=== PATIENT | female | born 1960 | race Caucasian/White ===

== ENCOUNTER 2016-10-03 22:17 | Emergency (ER) | payer OTHER ==
[~2016-10-03] VITALS: Ht 157.5 cm; Wt 70.5 kg
[~2016-10-03 22:17] MED LIST: ALBU8HFA IH; BUSP15 PO; DIVA250T4 PO; RISP2 PO; TIOT185 IH
[2016-10-03 22:23] VITALS: BP 143/62
== END 2016-10-03 23:31 | disposition left against medical advice (07) ==
LOC: EMS 22:18
DX: Z00.8 Encounter for other general examination (principal); Z53.21 Procedure and treatment not carried out due to patient leaving prior to being seen by health care provider

== ENCOUNTER 2016-10-18 14:15 | Inpatient (IN) | payer MEDICAID, OTHER ==
[~2016-10-18] VITALS: Ht 165.1 cm; Wt 86.7 kg
[2016-10-18] MEDS ORDERED: LORazepam 2 MG/ML VIAL IM ONE (15:15)
[2016-10-18] MEDS ORDERED: HALOPERIDOL LACTATE 5 MG/ML VIAL IM ONE (15:15)
[2016-10-18] MEDS ORDERED: DiphenhydrAMINE HCL 50 MG/ML VIAL IM ONE (15:15)
[2016-10-18 15:34] LABS: BASOPHILS % (AUTO) 0.7 % (0.0-2.0); HEMATOCRIT 41.3 % (36-46); HEMOGLOBIN 13.5 g/dL (12.0-16.0); LYMPHOCYTES # (AUTO) 3.1 K/uL (1.0-4.8); LYMPHOCYTES % (AUTO) 31.3 % (22.0-44.0); MEAN CORPUSCULAR HEMOGLOBIN 28.4 pg (26.0-34.0); MEAN CORPUSCULAR HGB CONC 32.7 G/dL (31.0-37.0); MEAN CORPUSCULAR VOLUME 87 fL (80-100); MONOCYTES % (AUTO) 9.7 % (2.0-9.0); NEUTROPHILS # (AUTO) 5.3 K/uL (1.8-7.7); NEUTROPHILS % (AUTO) 54.3 % (40.0-70.0); PLATELET COUNT (AUTO) 405 K/uL (150-450); RED BLOOD CELL COUNT(AUTO) 4.76 MIL/uL (4.00-5.20); RED CELL DISTRIBUTION WIDTH 13.7 % (11.5-14.5); WHITE BLOOD COUNT (AUTO) 9.8 K/uL (4.5-11.0)
[2016-10-18 15:50] LABS: ANION GAP 7 mmol/L (8-16); CALCIUM, TOTAL 8.6 mg/dL (8.8-10.5); CARBON DIOXIDE 31 mmol/L (22-29); CHLORIDE 104 mmol/L (98-107); CREATININE 0.86 mg/dL (0.60-1.30); GLOMERULAR FILTR. RATE CALC > 60 mL/min (>60); POTASSIUM 4.1 mmol/L (3.5-5.1); SODIUM SERUM 142 mmol/L (136-145); UREA NITROGEN, BLOOD 11 mg/dL (7-18)
[2016-10-18 15:56] LABS: ALANINE AMINOTRANSFERASE 20 U/L (12-78); ALBUMIN 3.6 g/dL (3.4-5.0); ASPARTATE AMINOTRANSFERASE 17 U/L (15-37); BILIRUBIN,TOTAL 0.3 mg/dL (0.1-1.0); TOTAL PROTEIN, SERUM 7.2 g/dL (6.4-8.2)
[2016-10-18 19:11] VITALS: BP 119/70
[2016-10-18] MEDS ORDERED: PNEUMOCOCCAL VACCINE POLYVALENT 0.5 ML VIAL [PPSV23] IM ONE (19:45)
[2016-10-18] MEDS ORDERED: INFLUENZA VIRUS VACCINE QVS 2016-17 (3YR+)/PF 60 MCG/0.5 ML SYRINGE IM ONE (20:15)
[2016-10-19 08:00] VITALS: BP 101/54
[2016-10-19] MEDS: NYSTATIN 15 GM POWDER BOTTLE TP SCH ×2 (09:00→17:00)
[2016-10-19] MEDS: RisperiDONE 2 MG TABLET PO SCH ×2 (11:30→17:48)
[2016-10-19] MEDS: DIVALPROEX SODIUM 250 MG DR TABLET PO SCH ×2 (11:30→17:48)
[2016-10-19] MEDS: BusPIRone HCL 15 MG TABLET PO SCH ×2 (13:45→17:49)
[2016-10-19 18:05] VITALS: BP 100/62
[2016-10-20] MEDS: LORazepam 2 MG TABLET PO PRN (00:11)
[2016-10-20] MEDS: ZOLPIDEM TARTRATE 10 MG TABLET PO PRN (00:11)
[2016-10-20 08:00] VITALS: BP 117/69
[2016-10-20] MEDS: RisperiDONE 2 MG TABLET PO SCH ×2 (08:12→16:34)
[2016-10-20] MEDS: DIVALPROEX SODIUM 250 MG DR TABLET PO SCH ×2 (08:12→16:34)
[2016-10-20] MEDS: BusPIRone HCL 15 MG TABLET PO SCH ×3 (08:12→16:34)
[2016-10-20] MEDS: NYSTATIN 15 GM POWDER BOTTLE TP SCH ×2 (09:00→16:06)
[2016-10-20 16:11] VITALS: BP 118/83
[2016-10-21] MEDS: ZOLPIDEM TARTRATE 10 MG TABLET PO PRN (00:19)
[2016-10-21] MEDS: LORazepam 2 MG TABLET PO PRN (02:28)
[2016-10-21 04:04] VITALS: BP 112/80
[2016-10-21 08:00] VITALS: BP 123/74
[2016-10-21] MEDS: BusPIRone HCL 15 MG TABLET PO SCH ×4 (08:26→21:25)
[2016-10-21] MEDS: DIVALPROEX SODIUM 250 MG DR TABLET PO SCH ×2 (08:27→18:11)
[2016-10-21] MEDS: RisperiDONE 2 MG TABLET PO SCH (08:27)
[2016-10-21] MEDS: NYSTATIN 15 GM POWDER BOTTLE TP SCH ×2 (09:00→17:00)
[2016-10-21] MEDS ORDERED: RISP4 PO (13:37)
[2016-10-21] MEDS ORDERED: VIST50 PO (13:41)
[2016-10-21] MEDS ORDERED: GABA-533 PO (13:41)
[2016-10-21] MEDS ORDERED: PERCT PO (13:41)
[2016-10-21] MEDS ORDERED: IPRA4AER IH (13:41)
[2016-10-21 16:42] VITALS: BP 102/68
[2016-10-21] MEDS: GABAPENTIN 400 MG CAPSULE PO SCH (18:11)
[2016-10-21] MEDS: RisperiDONE 4 MG TABLET PO SCH (18:12)
[2016-10-22] MEDS: ZOLPIDEM TARTRATE 10 MG TABLET PO PRN (00:26)
[2016-10-22] MEDS: LORazepam 2 MG TABLET PO PRN ×2 (00:26→09:14)
[2016-10-22 03:43] VITALS: BP 142/74
[2016-10-22 08:30] VITALS: BP 116/70
[2016-10-22] MEDS: NYSTATIN 15 GM POWDER BOTTLE TP SCH ×2 (09:00→17:00)
[2016-10-22] MEDS: RisperiDONE 4 MG TABLET PO SCH ×2 (09:12→17:17)
[2016-10-22] MEDS: DIVALPROEX SODIUM 250 MG DR TABLET PO SCH ×2 (09:13→17:18)
[2016-10-22] MEDS: GABAPENTIN 400 MG CAPSULE PO SCH ×3 (09:13→17:17)
[2016-10-22] MEDS: BusPIRone HCL 15 MG TABLET PO SCH ×4 (09:13→20:27)
[2016-10-22] MEDS: HALOPERIDOL 5 MG TABLET PO PRN (09:15)
[2016-10-22 09:20] VITALS: BP 116/70
[2016-10-22 16:58] VITALS: BP 104/60
[2016-10-23 05:15] VITALS: BP 88/68
[2016-10-23 06:33] VITALS: BP 101/60
[2016-10-23 08:51] VITALS: BP 107/60
[2016-10-23] MEDS: NYSTATIN 15 GM POWDER BOTTLE TP SCH ×2 (09:00→16:53)
[2016-10-23] MEDS: LORazepam 2 MG TABLET PO PRN (09:18)
[2016-10-23] MEDS: DIVALPROEX SODIUM 250 MG DR TABLET PO SCH ×2 (09:18→16:53)
[2016-10-23] MEDS: RisperiDONE 4 MG TABLET PO SCH ×2 (09:18→16:53)
[2016-10-23] MEDS: GABAPENTIN 400 MG CAPSULE PO SCH ×3 (09:18→16:53)
[2016-10-23] MEDS: BusPIRone HCL 15 MG TABLET PO SCH ×4 (09:18→20:53)
[2016-10-23] MEDS: HALOPERIDOL 5 MG TABLET PO PRN (09:18)
[2016-10-23 17:04] VITALS: BP 123/65
[2016-10-24] MEDS: GABAPENTIN 400 MG CAPSULE PO SCH ×2 (08:06→12:24)
[2016-10-24] MEDS: DIVALPROEX SODIUM 250 MG DR TABLET PO SCH (08:07)
[2016-10-24] MEDS: BusPIRone HCL 15 MG TABLET PO SCH ×2 (08:07→12:24)
[2016-10-24] MEDS: RisperiDONE 4 MG TABLET PO SCH (08:07)
[2016-10-24] MEDS: NYSTATIN 15 GM POWDER BOTTLE TP SCH (08:08)
[2016-10-24 08:30] VITALS: BP 102/61
[2016-10-24] MEDS ORDERED: NYST1POW16 TP (12:18)
== END 2016-10-24 15:56 | disposition home or self-care (01) | DRG 750 ==
LOC: EMS 14:17 → 3EC 17:44
DX: F25.0 Schizoaffective disorder, bipolar type (principal); J44.9 Chronic obstructive pulmonary disease, unspecified; I10 Essential (primary) hypertension; F17.210 Nicotine dependence, cigarettes, uncomplicated; F12.90 Cannabis use, unspecified, uncomplicated; Z91.19 Patient's noncompliance with other medical treatment and regimen; Z89.511 Acquired absence of right leg below knee; Z86.718 Personal history of other venous thrombosis and embolism; Z59.0 Homelessness; Z90.49 Acquired absence of other specified parts of digestive tract; Z80.42 Family history of malignant neoplasm of prostate; Z87.01 Personal history of pneumonia (recurrent); Z79.899 Other long term (current) drug therapy; Z91.83 Wandering in diseases classified elsewhere
CPT/HCPCS: 87081; 96372; 99285; G0480; J1200; J1630; J2060